=== PATIENT | female | born 2000 | race Caucasian/White ===

== ENCOUNTER 2021-04-29 16:25 | Emergency (ER) | payer OTHER ==
[~2021-04-29] VITALS: Ht 170.2 cm; Wt 72.6 kg
[2021-04-29 16:25] VITALS: BP_SYST 113
[2021-04-29] MEDS ORDERED: DIPH-TET-PERTUS Vaccine 0.5 ML VIAL (ADACEL) I.M. ONE (16:45)
[2021-04-29 17:47] VITALS: BP_SYST 105
== END 2021-04-29 17:47 | disposition home or self-care (01) ==
LOC: SED 16:25
DX: S71.151A Open bite, right thigh, initial encounter (principal); S71.152A Open bite, left thigh, initial encounter; W54.0XXA Bitten by dog, initial encounter; Y93.89 Activity, other specified; Y92.89 Other specified places as the place of occurrence of the external cause; Y99.8 Other external cause status
CPT/HCPCS: 90715; 99283